=== PATIENT | male | born 2000 | race American Indian/Alaskan Native ===

== ENCOUNTER 2025-04-02 01:48 | Emergency (ER) | payer SELFPAY ==
[2025-04-02] MEDS: Ketorolac 30 MG/ML SDV IM ONE (02:09)
== END 2025-04-02 02:15 | disposition home or self-care (01) ==
LOC: DL.ED 01:48
DX: M25.561 Pain in right knee (principal); G89.29 Other chronic pain
CPT/HCPCS: 96372; 99283; J1885

== ENCOUNTER 2025-04-29 21:11 | Emergency (ER) | payer OTHER | END 2025-04-30 00:27 | disposition home or self-care (01) | LOC: DL.ED 21:11 | DX: M25.511 Pain in right shoulder (principal) | CPT/HCPCS: 73030; 99283; J7512 ==

== ENCOUNTER 2025-05-08 18:14 | Emergency (ER) | payer OTHER ==
[2025-05-08] MEDS: Ketorolac 30 MG/ML SDV IM ONE (18:45)
== END 2025-05-08 18:56 | disposition home or self-care (01) ==
LOC: DL.ED 18:14
DX: M54.50 Low back pain, unspecified (principal); Z79.899 Other long term (current) drug therapy
CPT/HCPCS: 96372; 99283; J1885